=== PATIENT | female | born 1970 | race Caucasian/White ===

== ENCOUNTER 2024-02-18 15:02 | Outpatient (AMB) | payer OTHER, SELFPAY ==
--- NOTE | 2024-02-18 15:19 | MHC.PC.OV ---
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 Last physical ~ one year ago Concerns Menses-She reports that she has gained weight. She is now getting fairly heavy periods and often happening every two weeks. She has not missed any periods. Mom had menopause at 55, sister with hysterectomy Reports colon cancer screening and mammography are up to date. ROS see HPI PHYSICAL EXAM: GENERAL: Alert and oriented x 3. NAD EYES: EOMI. Anicteric. HENT: Moist mucous membranes. No scleral icterus. No cervical lymphadenopathy. LUNGS: Clear to auscultation bilaterally. CARDIOVASCULAR: Regular rate and rhythm. No murmur. No JVD. ABDOMEN: Soft, non-tender +bs EXTREMITIES: No edema. Non-tender. SKIN: No rashes or lesions. Warm. NEUROLOGIC: No focal neurological deficits. CN II-XII grossly intact PSYCHIATRIC: Cooperative. 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 1. Little interest or pleasure in doing things: not at all 2. Feeling down, depressed, or hopeless: not at all 3. Trouble falling or staying asleep, or sleeping too much: not at all 4. Feeling tired or having little energy: not at all 5. Poor appetite or overeating: not at all 6. Feeling bad about yourself - or that you are a failure or have let yourself or your family down: not at all 7. Trouble concentrating on things, such as reading the newspaper or watching television: not at all 8. Moving or speaking so slowly that other people could have noticed. Or the opposite - being so fidgety or restless that you have been moving around a lot more than usual: not at all 9. Thoughts that you would be better off or of hurting yourself in some way: not at all Total score: 0 Depression Screening Interpretation: Negative (neg) Depression Screening Done: Yes 72480 - PHQ-9 Billing: Yes Source: Developed by Drs. Meño Owens, Hien Fitzpatrick, López Ramirez and colleagues, with an educational eugene from [employer]. Thrive Questionnaire Date Thrive assessed: 02/15/24 I am a: Patient What is your living situation today?: I have a steady place to live Within the past 12 months, did the food you bought not last and you didn't have the money to get more?: Never true Within the past 12 months, did you worry whether your food would run out before you got money to buy more?: Never true Do you have trouble paying for medicines?: No Do you have trouble getting transportation to medical appointments?: No Do you have trouble paying your heating and electricity bill?: No Do you have trouble taking care of your child, family member or friend?: No Do you have trouble with day-to-day activities such as bathing, preparing meals, shopping, managing finances, etc.?: No Are you currently unemployed and looking for a job?: No Are you interested in more education?: No Please select the resources that you would like help with: None Currently or been in a relationship where the following occur: No concerns reported THRIVE Score: 0 AUDIT C Alcohol Use Questionnaire (AUDIT-C) 1. How often do you have a drink containing alcohol?: Monthly or less 2. How many drinks containing alcohol do you have on a typical day when you are drinking?: 1 or 2 3. How often do you have six or more drinks on one occasion?: Less than monthly Total Score: 2 SIMONE-7 AMB Questionnaire SIMONE-7 Date SIMONE - 7 assessed: 02/18/24 Feeling nervous, anxious, or on edge: 0 = Not at all Not being able to stop or control worryin = Not at all Worrying too much about different things: 0 = Not at all Trouble relaxin = Not at all Being so restless that it is hard to sit still: 0 = Not at all Becoming easily annoyed or irritable: 0 = Not at all Feeling afraid as if something awful might happen: 0 = Not at all Total SIMONE-7 score (0-4 normal; 5-9 mild; 10-14 moderate; 15-21 severe): 0 Source: Developed by Drs. Meño Owens, Hien Fitzpatrick, López Ramirez and colleagues, with an educational eugene from [employer]. SIMONE-7 Assessment Billing SIMONE-7 Assessment Tool: SIMONE-7 Assessment 81027 Physical exam (Primary Care) Vital Signs: Last Vital Signs Temp 97.7 F 02/18/24 15:23 Pulse 73 02/18/24 15:23 Resp 14 02/18/24 15:23 BP 124/72 02/18/24 15:23 Pulse Ox 98 02/18/24 15:23 Oxygen Delivery Method Room Air 02/18/24 15:23 BMI result Body Mass Index 29.2 Tobacco/Smoking Status: Tobacco use Status Tobacco use date assessed 02/18/24 02/18/24 15:27 Patient Tobacco Use Status Never used Tobacco 02/18/24 15:27 e-Cigarette/Vaping Use Never Used 02/18/24 15:27 PHQ-9: PHQ-9 Score PHQ-9: Total score 0 03/12/24 09:22 Depression Screening Interpretation: Negative (neg) Thrive Assessment: Date of Thrive Assessment Date Thrive assessed 02/15/24 02/18/24 15:21 Currently or been in a relationship where the following occur: No concerns reported Coding Level of Care Code Est Pt Level 4 (86366) Complex EM visit Add On G2211 Diagnoses Encounter to establish care Z76.89 Abnormal menses N92.6 Additional Codes SIMONE-7 Assessment Billing - SIMONE-7 Assessment Tool: SIMONE-7 Assessment 64101 ([id number]) Assessment & Plan Assessment & Plan (1) Encounter to establish care: Code(s): Z76.89 - Persons encountering health services in other specified circumstances Category: Medical Plan: 54 y/o to establish care. Past medical, surgical, social and family history reviewed. Chart updated (2) Abnormal menses: Code(s): N92.6 - Irregular menstruation, unspecified Category: Medical Plan: labs ordered Weight gain-ezray sent Orders: Orders TSH reflex Free T4 02/23/24 N92.6 - Irregular menstruation, unspecified, Z13.0 - Encounter for screening for diseases of the blood and blood-forming organs and certain disorders involving the immune mechanism, Z13.228 - Encounter for screening for other metabolic disorders, Z13.220 - Encounter for screening for lipoid disorders IRON PROFILE 02/23/24 N92.6 - Irregular menstruation, unspecified, Z13.0 - Encounter for screening for diseases of the blood and blood-forming organs and certain disorders involving the immune mechanism, Z13.228 - Encounter for screening for other metabolic disorders, Z13.220 - Encounter for screening for lipoid disorders Lutenizing Hormone 02/23/24 N92.6 - Irregular menstruation, unspecified, Z13.0 - Encounter for screening for diseases of the blood and blood-forming organs and certain disorders involving the immune mechanism, Z13.228 - Encounter for screening for other metabolic disorders, Z13.220 - Encounter for screening for lipoid disorders Comprehensive Met. Panel 02/23/24 N92.6 - Irregular menstruation, unspecified, Z13.0 - Encounter for screening for diseases of the blood and blood-forming organs and certain disorders involving the immune mechanism, Z13.228 - Encounter for screening for other metabolic disorders, Z13.220 - Encounter for screening for lipoid disorders Lipid Panel 02/23/24 N92.6 - Irregular menstruation, unspecified, Z13.0 - Encounter for screening for diseases of the blood and blood-forming organs and certain disorders involving the immune mechanism, Z13.228 - Encounter for screening for other metabolic disorders, Z13.220 - Encounter for screening for lipoid disorders Estradiol Ultra Sensitive 02/23/24 N92.6 - Irregular menstruation, unspecified, Z13.0 - Encounter for screening for diseases of the blood and blood-forming organs and certain disorders involving the immune mechanism, Z13.228 - Encounter for screening for other metabolic disorders, Z13.220 - Encounter for screening for lipoid disorders Complete Blood Count Auto Diff 02/23/24 N92.6 - Irregular menstruation, unspecified, Z13.0 - Encounter for screening for diseases of the blood and blood-forming organs and certain disorders involving the immune mechanism, Z13.228 - Encounter for screening for other metabolic disorders, Z13.220 - Encounter for screening for lipoid disorders Medications: New Wegovy (semaglutide (weight loss)) administer weeks 1 through 4 of therapy 0.25 mg (0.5 mL) subcut QWEEK 2 mL 0RF NS
[2024-02-18 15:23] VITALS: BP 124/72; PULSE 73; RESP 14; TEMP 36.5; O2SAT 98; BMI 29.2
== END 2024-02-18 15:51 | disposition home or self-care (01) ==
PROVIDERS: PCP Internal Medicine; Visit Provider Internal Medicine
DX: Z76.89 Persons encountering health services in other specified circumstances (principal); N92.6 Irregular menstruation, unspecified

== ENCOUNTER → 2024-02-18 15:02 | Outpatient (BNVA) | payer OTHER, SELFPAY | PROVIDERS: PCP Internal Medicine; Visit Provider Internal Medicine | DX: Z76.89 Persons encountering health services in other specified circumstances (principal); N92.6 Irregular menstruation, unspecified | CPT/HCPCS: 96127 ==

== ENCOUNTER 2024-02-23 08:13 | Outpatient (REF) | payer OTHER, SELFPAY ==
[2024-02-23 11:42] LABS: MANUAL DIFF FLAG NO
[2024-02-23 11:57] LABS: Basophils Absolute Auto 0.1 X10*3/uL (0.0-0.2); Eosinophils Absolute Auto 0.3 X10*3/uL (0.0-0.4); Eosinophils Percent Auto 4.6 % (0-4); Hematocrit 32.2 % (37.0-47.0); Hemoglobin 9.4 g/dl (12.0-16.0); Imm Gran Abs Auto 0.02 X10*3/uL (0.00-0.03); Imm Gran Pct Auto 0.3 % (0.0-0.4); Lymphocytes Absolute Auto 1.6 X10*3/uL (1.2-4.9); Lymphocytes Percent Auto 27.1 % (20-40); Mean Corpuscular HGB Conc 29.2 g/dl (31.0-35.0); Mean Corpuscular Hemoglobin 22.3 pg (27.0-33.0); Mean Corpuscular Volume 76.3 fL (80.0-98.0); Mean Platelet Volume 9.6 fL (9.4-12.3); Monocytes Absolute Auto 0.6 X10*3/uL (0.1-1.2); Monocytes Percent Auto 10.1 % (2-11); Neutrophils Absolute Auto 3.3 x10*3/uL (2.0-8.3); Neutrophils Percent Auto 56.9 % (45-73); Platelet Count 383 X10*3/uL (160-400); Red Blood Count 4.22 X10*6/uL (4.20-5.50); White Blood Count 5.9 X10*3/uL (4.8-10.8)
[2024-02-23 12:23] LABS: Alanine Aminotransferase 22 U/L (0-31); Albumin Level 4.2 g/dL (3.5-5.0); Alkaline Phosphatase 77 U/L (39-117); Anion Gap 11 (12-20); Aspartate Amino Transferase 34 U/L (5-31); Bilirubin Total 0.7 mg/dL (0.0-1.0); Blood Urea Nitrogen 11 mg/dL (9-16); Calcium 9.2 mg/dL (8.4-10.2); Carbon Dioxide 20 mmol/L (22-29); Chloride 107 mmol/L (96-108); Cholesterol 152 mg/dL (<200); Estimated Glomerular Filt Rate > 60; Glucose Random 90 mg/dL (60-115); HDL Cholesterol 69 mg/dL (>40); Iron 26 mcg/dL (30-160); LDL Cholesterol Calculated 73 mg/dL (<100); Percent Iron Saturation 6 % (15-50); Sodium 134 mmol/L (135-145); Total Iron Binding Capacity 401 mcg/dL (228-428); Total Protein 7.4 g/dL (6.5-8.0); Triglycerides 51 mg/dL (<150); Unsaturated Iron Binding 375 ug/dL
[2024-02-23 12:44] LABS: TSH reflex Free T4 1.35 uIU/mL (0.32-4.0)
[2024-02-25 05:53] LABS: Lutenizing Hormone 4.6 mIU/mL
[2024-03-01 02:54] LABS: Estradiol Ultra Sensitive 130 pg/mL
== END 2024-02-23 08:14 | disposition home or self-care (01) ==
LOC: HO.WFDLDS 08:13
PROVIDERS: Visit Provider Internal Medicine
DX: N92.6 Irregular menstruation, unspecified (principal); Z13.0 Encounter for screening for diseases of the blood and blood-forming organs and certain disorders involving the immune mechanism; Z13.228 Encounter for screening for other metabolic disorders; Z13.220 Encounter for screening for lipoid disorders
CPT/HCPCS: 36415; 80053; 80061; 82670; 83002; 83540; 84443; 85025

== ENCOUNTER → 2024-05-16 13:35 | Outpatient (BNVA) | payer OTHER, SELFPAY | PROVIDERS: PCP Internal Medicine; Visit Provider Internal Medicine ==

== ENCOUNTER → 2024-05-16 13:35 | Outpatient (AMB) | payer OTHER, SELFPAY ==
--- NOTE | 2024-05-16 13:55 | A.OFFPC_ITS ---
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 She denies redness, warmth. No fevers. On last breast imaging said she had recall. Says fibrocystic or dense breasts. On exam today the left lateral and lower breast are diffusely tender to palpation. There seems to be some left lower lateral fullness without discrete nodularity. There is significant left axillary lymphadenopathy. no recent immunizations Concerns Menses-She reports that she has gained weight. She is now getting fairly heavy periods and often happening every two weeks. She has not missed any periods. Mom had menopause at 55, sister with hysterectomy Reports colon cancer screening and mammography are up to date. ROS see HPI PHYSICAL EXAM: GENERAL: Alert and oriented x 3. NAD EYES: EOMI. Anicteric. HENT: Moist mucous membranes. No scleral icterus. No cervical lymphadenopathy. LUNGS: Clear to auscultation bilaterally. CARDIOVASCULAR: Regular rate and rhythm. No murmur. No JVD. ABDOMEN: Soft, non-tender +bs EXTREMITIES: No edema. Non-tender. BREAST: see hpi SKIN: No rashes or lesions. Warm. NEUROLOGIC: No focal neurological deficits. CN II-XII grossly intact PSYCHIATRIC: Cooperative. 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 Current occupational exposures/hazards: No Cognitive needs: No Hearing needs: No Vision needs: No Questionnaire Thrive Questionnaire Date Thrive assessed: 05/16/24 I am a: Patient What is your living situation today?: I have a steady place to live Within the past 12 months, did the food you bought not last and you didn't have the money to get more?: Never true Within the past 12 months, did you worry whether your food would run out before you got money to buy more?: Never true Do you have trouble paying for medicines?: No Do you have trouble getting transportation to medical appointments?: No Do you have trouble paying your heating and electricity bill?: No Do you have trouble taking care of your child, family member or friend?: No Do you have trouble with day-to-day activities such as bathing, preparing meals, shopping, managing finances, etc.?: No Are you currently unemployed and looking for a job?: No Are you interested in more education?: No Please select the resources that you would like help with: None Currently or been in a relationship where the following occur: No concerns reported THRIVE Score: 0 SIMONE-7 AMB Questionnaire SIMONE-7 Date SIMONE - 7 assessed: 02/18/24 Becoming easily annoyed or irritable: 0 = Not at all Source: Developed by Drs. Meño Owens, Hien Fitzpatrick, López Ramirez and colleagues, with an educational eugene from [employer]. Physical exam (Primary Care) Vital Signs: Last Vital Signs Pulse 77 05/16/24 13:56 BP 124/84 05/16/24 13:56 Pulse Ox 99 05/16/24 13:56 Oxygen Delivery Method Room Air 05/16/24 13:56 BMI result Body Mass Index 28.9 Tobacco/Smoking Status: Tobacco use Status Tobacco use date assessed 05/16/24 05/16/24 13:56 Patient Tobacco Use Status Never used Tobacco 05/16/24 13:59 e-Cigarette/Vaping Use Never Used 05/16/24 13:59 Thrive Assessment: Date of Thrive Assessment Date Thrive assessed 05/16/24 05/16/24 13:59 Currently or been in a relationship where the following occur: No concerns reported Coding Level of Care Code Est Pt Level 4 (94977) Diagnoses Breast pain, left N64.4 Axillary lymphadenopathy R59.0 Assessment & Plan Assessment & Plan (1) Breast pain, left: Code(s): N64.4 - Mastodynia Category: Medical Plan: Left breast pain with axillary lymphadenopathy CT ordered referral to breast specialist Will try a course of antibiotic (2) Axillary lymphadenopathy: Code(s): R59.0 - Localized enlarged lymph nodes Category: Medical Plan: see above Orders: Orders CT chest wo/w IV con 05/16/24 N64.4 - Mastodynia, R59.0 - Localized enlarged lymph nodes US chest 05/16/24 R59.0 - Localized enlarged lymph nodes Referrals Breast Surgery Referral N64.4 - Mastodynia Medications: New amoxicillin-pot clavulanate 875-125 mg 1 tab PO Q12H 20 tabs 0RF
[2024-05-16 13:56] VITALS: BP 124/84; PULSE 77; O2SAT 99; BMI 28.9
== END ==
PROVIDERS: PCP Internal Medicine; Visit Provider Internal Medicine
DX: N64.4 Mastodynia (principal); R59.0 Localized enlarged lymph nodes

== ENCOUNTER 2024-05-25 15:15 | Outpatient (REF) | payer OTHER, SELFPAY ==
--- NOTE | ~2024-05-25 | US_ITS ---
CLINICAL HISTORY: R59.0 - Localized enlarged lymph nodes US left axilla nonvascular Comparison: None Findings: Sonographic evaluation of the soft tissues of the left axilla demonstrated a morphologically benign axillary lymph node with a central fatty hilum no cortical thickening/disruption measuring 1.1 x 0.9 x 0.5 cm. No soft tissue masses, lymphadenopathy or fluid collections demonstrated Impression: A morphologically benign appearing left axillary lymph node. This document has been electronically signed by: Carmelo Leon MD on 05/29/2024 12:41:18
== END 2024-05-25 15:16 | disposition home or self-care (01) ==
LOC: HO.US 15:15
PROVIDERS: PCP Internal Medicine; Visit Provider Internal Medicine
DX: R59.0 Localized enlarged lymph nodes (principal)
CPT/HCPCS: 76882

== ENCOUNTER → 2024-05-25 15:20 | Outpatient (BNV) | payer OTHER, SELFPAY | PROVIDERS: PCP Internal Medicine; Visit Provider Radiology Diagnostic Radiology | DX: R59.0 Localized enlarged lymph nodes (principal) | CPT/HCPCS: 76882 ==

== ENCOUNTER 2024-07-06 11:13 | Outpatient (REF) | payer OTHER, SELFPAY ==
--- NOTE | ~2024-07-06 | CT_ITS ---
CLINICAL HISTORY: R59.0 - Localized enlarged lymph nodes CT chest with contrast Comparison: None Findings: The heart size is normal. The visualized thyroid and mediastinum are unremarkable. No lymphadenopathy as clinically questioned. No infectious airspace consolidation. No pleural effusion or pneumothorax. Some mild pleural-parenchymal scarring at the right middle lobe and lingula likely sequelae of old infection. The visualized upper abdomen is unremarkable. No acute fractures. IMPRESSION: 1. No acute findings on chest CT. Specifically, no lymphadenopathy as clinically questioned. This document has been electronically signed by: Mary De MD on 07/06/2024 13:01:16
[2024-07-06] MEDS: iohexoL 350 MG/ML 100 ML INFUS..BTL 65 ML IV (12:01)
--- OUTSIDE RECORDS SUMMARY | 2024-07-06 12:36 | XMS_ITS | Clinical Summary ---
Author Organization [facility] Address [address] [place] [address] Phone Care Team Providers Care Sole Tacker Name Role Phone Unavailable Primary Care Provider Unavailabl e Social History Tobacco Use Types Packs/Day Years Used Date Smoking Tobacco: Never Assessed Comments Unknown Sex and Gender Information Value Date Recorded Sex Assigned at Not on file Legal Sex Female 6:32 AM EST Gender Identity Not on file Sexual Orientation Not on file Plan of Treatment Upcoming Encounters Date Type Department Care Team (Late st Contact Info) Description 09/01/2024 8:45 AM EDT Appointment [facility] [address] [address] Health Maintenance Due Date Last Done Comments DTaP,Tdap,and Td Vaccines (1 - Tdap) 1989 Hepatitis B Vaccines (1 of 3 - 19+ 3-dose series) 1989 Cervical Cancer Screening: Pap Smear 1991 Pneumococcal Vaccine: 50+ Years (1 of 1 - PCV) 01/28/2020 Zoster Vaccines (1 of 2) 01/28/2020 Colorectal Cancer Screening: Colonoscopy 04/19/2022 Depression Screening 04/19/2022 HIV Screening 04/19/2022 Hepatitis C Screening 04/19/2022 Social Influencers of Health Screening 04/19/2022 COVID-19 Vaccine (1 - 2023- season) 2024 Influenza Vaccine (#1) 2024 Breast Cancer Screening 08/22/2025 08/23/19 24, 08/17/2022, 08/09/2021, Additional history exists HIB Vaccines Aged Out No longer eligi ble based on patient's age to complete this topic HPV Vaccines Aged Out No longer eligi ble based on patient's age to complete this topic Hepatitis A Vaccines Aged Out No long er eligible based on patient's age to complete this topic IPV Vaccines Aged Out No longer eligi ble based on patient's age to complete this topic MMR Vaccines Aged Out No longer eligi ble based on patient's age to complete this topic Meningococcal ACWY Vaccine Aged Out N o longer eligible based on patient's age to complete this topic Meningococcal B Vacine Aged Out No lo nger eligible based on patient's age to complete this topic Pneumococcal Vaccine: Pediatrics (0 to 5 Years) and At-Risk Patients (6 to 64 Years) Aged Out No longer eligible based on patient's age to complete this topic RSV Immunization Patients Under 20 months Aged Out No longer eligible based on patient's age to complete this topic Varicella Vaccines Aged Out No longer eligible based on patient's age to complete this topic Procedures Procedure Name Priority Date/Time Associated Diagnosis Comments [facility] SCREENING DIGITAL Routine 08/23/2023 8:13 AM EDT Encounter for screening mammogram for malignant neoplasm of breast from Last 3 Months or Most Recently Relevant to Health Maintenance Results * [facility] SCREENING DIGITAL (08/23/2023 8:13 AM EDT) Anatomical Region Laterality Modality Mammography 08/19/2023 8:36 AM EDT Narrative 08/23/2023 8:13 AM EDT [facility] Diagnostic Imaging Department [address] [place] [address] [id number] Patient: ??CAROLINE BLOOM ?/Age/Sex: 1970 - 53 - F Unit#: ??[id number] ? Location/Status: ??SPDIMAM/REG CLI ? Mnemonic/Ordering Site: ??DIGSC/SPMAIN Ordering Physician: ??MARISELA HODGE MS, PA-C [facility] Screening Digital - 08/21/23 - 737 Report Status:Signed EXAM: [facility] Screening Digital EXAM DATE AND TIME: 08/21/2023 7:38 AM HISTORY: ??Annual screening COMPARISON: ??Multiple exams dating back to 2008 TECHNIQUE: Bilateral digital breast tomosynthesis was performed in the CC and MLO projections. Computer aided detection with Exalead 3D 3.1 was employed. TISSUE DENSITY: b. There are scattered areas of fibroglandular density. FINDINGS: Possible developing asymmetry in the upper-outer quadrant of the left breast seen on the MLO view. ??No associated calcification or architectural distortion. The right breast is unremarkable. IMPRESSION: Possible developing asymmetry in the upper-outer quadrant of the left breast seen on the MLO view. ??Recommend diagnostic mammogram of the left breast with spot compression MLO tomographic views. BI-RADS: ??Category 0: Incomplete - Need Additional Imaging Evaluation Dictating Physician: ??JULIO CESAR VELEZ MD Electronically Signed by: ??JULIO CESAR VELEZ MD Dic Date/Time: ??08/23/23809 Sign date/Time: ??08/23/23 08 Procedure Note Julio Cesar Velez MD - 01/03/2024 [facility] Diagnostic Imaging Department [address] [place] [id number] Patient: CAROLINE BLOOM/Age/Sex: 1970 - 53 - F Unit#: [id number] Location/Status: SPDIMAM/REG CLI Mnemonic/Ordering Site: [facility] Ordering Physician: MARISELA HODGE MS, PA-C [facility] Screening Digital - 08/21/23 - 38 Report Status:Signed EXAM: [facility] Screening Digital EXAM DATE AND TIME: 08/21/2023 7:38 AM HISTORY: Annual screening COMPARISON: Multiple exams dating back to 2008 TECHNIQUE: Bilateral digital breast tomosynthesis was performed in the CCand MLO projections. Computer aided detection with Exalead 3D 3.1was employed. TISSUE DENSITY: b. There are scattered areas of fibroglandular density. FINDINGS: Possible developing asymmetry in the upper-outer quadrant of the leftbreast seen on the MLO view. No associated calcification or architecturaldistortion. The right breast is unremarkable. IMPRESSION: Possible developing asymmetry in the upper-outer quadrant of the leftbreast seen on the MLO view. Recommend diagnostic mammogram of the left breastwith spot compression MLO tomographic views. BI-RADS: Category 0: Incomplete - Need Additional Imaging Evaluation Dictating Physician: JULIO CESAR VELEZ MD Electronically Signed by: JULIO CESAR VELEZ MD Dic Date/Time: 08/23/23809 Sign date/Time: 08/23/23812 Marisela GRADY IMG BI PROCEDURES Final Result from Last 3 Months or Most Recently Relevant to Health Maintenance Insurance [employer]
[2024-07-06 13:12] LABS: Creatinine POC 0.9 mg/dL (0.5-1.4); GFR POC > 60
== END 2024-07-06 11:14 | disposition home or self-care (01) ==
LOC: HO.CT 11:13
PROVIDERS: PCP Internal Medicine; Visit Provider Internal Medicine
DX: R59.0 Localized enlarged lymph nodes (principal); N64.4 Mastodynia
CPT/HCPCS: 71260; 82565; Q9967

== ENCOUNTER → 2024-07-06 11:15 | Outpatient (BNV) | payer OTHER, SELFPAY | PROVIDERS: PCP Internal Medicine; Visit Provider Radiology Diagnostic Radiology | DX: R59.0 Localized enlarged lymph nodes (principal) | CPT/HCPCS: 71260 ==

== ENCOUNTER 2024-07-18 10:34 | Outpatient (AMB) | payer OTHER, SELFPAY ==
--- NOTE | 2024-07-18 10:35 | A.OFFVIS_ITS ---
Vital Signs 3 07/18/24 10:49 Height 5 ft 5.5 in Weight 175 lb 2 oz BMI 28.7 BP 117/67 Blood Pressure Location Lt brachial Position Sitting Pulse 75 Intake Visit Reasons: mastodynia Intake Note: Patient is seen in office for evaluation and treatment of mastodynia. Pt c/o: had pain from left armpit all the way to the breast, had imaging done and a lump was seen, uncomfortable under the armpit, does not feel a lump, had bx in the past (benign), had breast reduction, yes to breast feeding with no complications, first pregnacy 36 yrs old (twins), mother Dx with breast cancer at age of 82. CT:07/06/24 us:05/29/24 Truckman Required: No Program Director/Morning Show Host: Program Director/Morning Show Host Present Accompanied by: Self / Same As Patient Allergies No Known Allergies Allergy (Verified 07/18/24 10:45) Medication List - Last Reconciled 07/18/24 by Enzo Nuñez MD No Known Home Meds HPI Comments Details: 54-year-old female patient presenting for evaluation of recent complaints of left breast pain and enlarged lymph node in the left axilla. The pain was initially quite severe especially while in bed, but this has subsequently subsided and she currently denies any palpable mass or left breast pain. She reports undergoing mammogram evaluations at [facility], the reports of which are not available to time of this dictation. She does report a previous left breast needle biopsy which was benign. She underwent bilateral reduction mammoplasties (Dr. Platt) and was found to have LCIS. Family history is significant for her mother having breast cancer at the age of 82. She underwent lumpectomy and is doing well 1 year later. Her menarche was the age of 14. She is 1 para 2 with a set of twins. She was 36 years old when she had her children. Her last menstrual period was less than 1 month ago. 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 Current occupational exposures/hazards: No Cognitive needs: No Hearing needs: No Vision needs: No Female Reproductive History Menstrual Age of Menarche: 14 Date of last menstrual period: 06/23/24 Total pregnancies: 1 Number of Living Children: 2 Review of Systems Const All systems reviewed & are unremarkable except as noted in HPI and below Physical Exam Vital Signs: Last Vital Signs Pulse 75 07/18/24 10:49 BP 117/67 07/18/24 10:49 BMI result Body Mass Index 28.7 Const General: cooperative and no acute distress Nutritional Appearance: well nourished Orientation/consciousness: patient oriented x3 Limitations: no limitations HEENT Head: Yes normocephalic and Yes atraumatic Ears: hearing grossly normal bilaterally Chest Other: Left breast: No skin change, no nipple retraction, no nipple discharge, no palpable mass, a palpable enlarged lymph node is noted in the mid axilla approximately 1.5 cm diameter. Right breast: No skin change, no nipple retraction, no nipple discharge, no palpable mass, no enlarged lymph nodes Chest/axillae images: 2 1. Site of enlarged lymph node left axilla Resp Effort & Inspection: normal respiratory effort, no audible wheezes, no cough and no respiratory distress Cardio Jugular venous distension: no JVD GI Inspection: Yes normal to inspection Skin Other: Warm, dry, no rash Neuro General: patient oriented x3 Extrem General: Yes no clubbing, cyanosis or edema Assessment & Plan Assessment & Plan (1) Axillary lymphadenopathy: Code(s): R59.0 - Localized enlarged lymph nodes Category: Medical (2) Breast pain, left: Code(s): N64.4 - Mastodynia Category: Medical (3) At high risk for breast cancer: Code(s): Z91.89 - Other specified personal risk factors, not elsewhere classified Category: Medical Plan 54-year-old female patient with a family history of breast cancer in her mother presenting with a recent history of left breast pain found to have an enlarged lymph node in the left axilla. She previously underwent bilateral reduction mammoplasties and was told that she had LCIS in the portion removed. She previously underwent a left needle biopsy which was benign. On examination she has no current tenderness but does have an enlarged lymph node in the left axilla. I recommended an ultrasound-guided core biopsy of this enlarged lymph node and will make arrangements for this at the [facility]. I calculated her Rosalieer-Cuzick remaining lifetime risk of breast cancer at 56.5% which would place her at high risk for breast cancer, due to her prior history of LCIS. She would qualify for a hand screening for breast cancer including twice yearly clinical breast examination, yearly breast MRI alternating every 6 months with her yearly mammograms. This will be discussed with her further when she returns after the ultrasound-guided core biopsy. Orders: Orders 2 US biopsy lymph node Today N64.4 - Mastodynia, R59.0 - Localized enlarged lymph nodes Coding Level of Care Code New Pt Level 4 (88625) Diagnoses Axillary lymphadenopathy R59.0 Breast pain, left N64.4 At high risk for breast cancer Z91.89
[2024-07-18 10:49] VITALS: BP 117/67; PULSE 75; BMI 28.7
--- OUTSIDE RECORDS SUMMARY | 2024-07-18 12:52 | XMS_ITS | Clinical Summary ---
Author Organization [facility] Address [address] [place] [address] Phone Care Team Providers Care Aviation Electrical Technician Name Role Phone Unavailable Primary Care Provider [...] AM EDT [facility]ment [facility] [address] [id number] Health Maintenance Due Date Last [...] Procedure Name Priority Date/Time Associated Diagnosis Comments [facility] SCREENING DIGITAL Routine 08/23/2023 8:13 AM EDT Encounter for screening mammogram for malignant neoplasm of breast from Last 3 Months or Most Recently Relevant to Health Maintenance Results * [facility] SCREENING DIGITAL (08/23/2023 8:13 AM EDT) Anatomical Region Laterality Modality Mammography 08/19/2023 8:36 AM EDT Narrative 08/23/2023 8:[address] [facility] Diagnostic Imaging Department [address] [place] [address] [id number] Patient: ??CAROLINE BLOOM ?/Age/Sex: 1970 - 53 - F Unit#: ??[id number] ? Location/Status: ??SPDIMAM/REG CLI ? Mnemonic/Ordering Site: ??DIGSC/SPMAIN Ordering Physician: ??MARISELA HODGE MS, PA-C [facility] Screening Digital - 08/21/23 - 737 Report Status:Signed EXAM: [facility] Screening Digital EXAM DATE AND TIME: 08/21/2023 7:38 AM HISTORY: ??Annual screening COMPARISON: ??Multiple exams dating back to 2008 TECHNIQUE: Bilateral digital breast tomosynthesis was performed in the CC and MLO projections. Computer aided detection with [employer] 3D 3.1 was employed. TISSUE DENSITY: b. [...] Note Julio Cesar Velez MD - 01/03/2024 [facility] Diagnostic Imaging Department [address] [place] [id number] Patient: CAROLINE BLOOM/Age/Sex: 1970 - 53 - F Unit#: [id number] Location/Status: SPDIMAM/REG CLI Mnemonic/Ordering Site: [facility] Ordering Physician: MARISELA HODGE MS, PA-C [facility] Screening Digital - 08/21/23 - 38 Report Status:Signed EXAM: [facility] Screening Digital EXAM DATE AND TIME: 08/21/2023 7:38 AM HISTORY: Annual screening COMPARISON: Multiple exams dating back to 2008 TECHNIQUE: Bilateral digital breast tomosynthesis was performed in the CCand MLO projections. Computer aided detection with MedCenterDisplay 3D 3.1was employed. TISSUE DENSITY: b. There [...]
== END 2024-07-18 10:59 | disposition home or self-care (01) ==
PROVIDERS: PCP Internal Medicine; Visit Provider Surgery
DX: R59.0 Localized enlarged lymph nodes (principal); N64.4 Mastodynia; Z91.89 Other specified personal risk factors, not elsewhere classified
CPT/HCPCS: 99204

== ENCOUNTER → 2024-07-18 10:34 | Outpatient (BNVA) | payer OTHER, SELFPAY | PROVIDERS: PCP Internal Medicine; Visit Provider Surgery ==

== ENCOUNTER 2024-08-08 13:39 | Outpatient (REF) | payer OTHER, SELFPAY ==
--- NOTE | ~2024-08-08 | US_ITS ---
PROCEDURE: US GUIDED LEFT AXILLA LYMPH NODE BIOPSY CLINICAL INFORMATION: Palpable lymph node left axilla, high risk for breast cancer. COMPARISON: CT chest 07/06/2024. PROCEDURAL DETAILS: The details of the procedure, as well as the risks, benefits, and alternatives to the procedure were explained to the patient in detail and all of her questions were answered, after which written informed consent was obtained. Site and side were confirmed. Prior to the procedure, sonography revealed a 1.2 x 1.7 cm low left axillary lymph node, correlating with the palpable finding. A time-out was performed, the lesion intended for biopsy was targeted, and the skin of the overlying left axilla was then marked, prepped and draped in the usual sterile fashion. Using sonographic guidance, sterile technique, and 1% lidocaine without epinephrine for local anesthesia, multiple core biopsies were obtained through the lymph node with a 14G spring loaded [employer] core biopsy device. There was real-time confirmation of appropriate needle passage. Sampling was documented. At the completion of tissue sampling, a single butterfly shaped metallic clip was deposited at the biopsy site. There was no evidence of immediate complication. SPECIMEN: 5 well formed core samples were obtained DIGITAL POST-PROCEDURE MAMMOGRAPHY: Not performed. The patient tolerated the procedure well and, after assuring adequate hemostasis, was discharged in good condition after reviewing postbiopsy breast care instructions. Final pathology results are pending. US/US biopsy lymph node IMPRESSION: 1. No immediate complication from ultrasound-guided percutaneous biopsy left low axillary lymph node. 2. Ultrasound was used to localize and guide marker clip placement. 3. Final pathology results are pending. A separate report with final recommendations will be issued once these results are made available. Electronically signed by: George Andrew MD 08/08/2024 03:08 PM EDT
--- NOTE | ~2024-08-08 | US_ITS ---
EXAMINATION: US DIAGNOSTIC ULTRASOUND LEFT AXILLA CLINICAL INFORMATION: Palpable abnormality of the left axilla. Patient is high risk for breast CA. Biopsy requested by Dr. Nuñez. COMPARISON: 07/06/[address] Mammography, [facility], 02/29/2024 TECHNIQUE: Ultrasound of the left axilla performed with real-time dolan scale imaging and color Doppler. Attention given to the region of palpable concern. FINDINGS: There is no focal suspicious finding. There is no solid mass, architectural abnormality, duct ectasia, or edema in the soft tissue planes. There are 3 normal-appearing lymph nodes with normal normal morphology, normal thickness cortex, and prominent fatty riuz. The most inferior measures approximately 1.8 x 1.2 cm, and correlates with the area of palpable concern. US/US breast LT limited mamm only IMPRESSION: Left axillary normal-appearing lymph nodes. Biopsy requested by ordering provider due to patient high-risk status. Findings and recommendations were discussed with the patient in detail. ASSESSMENT: BI-RADS 4: Suspicious (subcategory 4A: Low suspicion for malignancy) RECOMMENDATION: Ultrasound-guided core biopsy. Electronically signed by: George Andrew MD 08/08/2024 03:13 PM EDT
[2024-08-08] MEDS: Sodium Bicarbonate 8.4% 50 MEQ/50 ML VIAL SUBCUT (14:44)
[2024-08-08] MEDS: Lidocaine HCl 1 % 20 ML VIAL 4 ML SUBCUT (14:45)
== END 2024-08-08 13:40 | disposition home or self-care (01) ==
LOC: HO.MAMMO 13:39
PROVIDERS: Radiology Diagnostic Radiology; PCP Internal Medicine; Visit Provider Surgery
DX: N64.4 Mastodynia (principal); R59.0 Localized enlarged lymph nodes
CPT/HCPCS: 38505; 76642; 76942; 88184; 88185; 88300; 88305; A4648; C1894; J2003

== ENCOUNTER → 2024-08-08 14:00 | Outpatient (BNV) | payer OTHER, SELFPAY | PROVIDERS: PCP Internal Medicine; Visit Provider Radiology Diagnostic Radiology | DX: R59.0 Localized enlarged lymph nodes (principal) | CPT/HCPCS: 38505; 76882; 76942 ==

== ENCOUNTER 2024-08-29 09:20 | Outpatient (AMB) | payer OTHER, SELFPAY ==
--- NOTE | 2024-08-29 09:20 | A.OFFVIS_ITS ---
Vital Signs 08/29/24 09:23 Height 5 ft 5 in Weight 175 lb BMI 29.1 BP 117/65 Blood Pressure Location Lt brachial Position Sitting Pulse 80 Intake Visit Reasons: breast bx results Intake Note: Patient is seen in office for ultrasound biopsy RESULTS left axilla lymph nodes. Pt c/o:no changes here for results us b:08/08/24 * Order MRI * Pharmacy Technician Required: No Accompanied by: Self / Same As Patient Allergies No Known Allergies Allergy (Verified 08/29/24 09:24) Medication List - Last Reconciled 08/29/24 by Enzo Nuñez MD No Known Home Meds HPI Comments Details: 54-year-old female patient presenting for evaluation of recent complaints of left breast pain and enlarged lymph node in the left axilla. The pain was initially quite severe especially while in bed, but this has subsequently subsided and she currently denies any palpable mass or left breast pain. She reports undergoing mammogram evaluations at [facility], the reports of which are not available to time of this dictation. She does report a previous left breast needle biopsy which was benign. She underwent bilateral reduction mammoplasties (Dr. Platt) and was found to have LCIS. Family history is significant for her mother having breast cancer at the age of 82. She underwent lumpectomy and is doing well 1 year later. Her menarche was the age of 14. She is 1 para 2 with a set of twins. She was 36 years old when she had her children. Her last menstrual period was less than 1 month ago. She returns today following a left axillary lymph node needle biopsy with ultrasound guidance. Pathology revealed scant benign lymphoid tissue with nonspecific T- cell dominant profile with increased CD4 positive events, nondiagnostic for B- cell lymphoproliferative disorder by flow cytometry. A copy of the report was provided to the patient. Patient was determined to have a Tyrer-Cuzick remaining lifetime risk of breast cancer at 56% placing her at high risk for breast cancer both from family history and personal history. 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 Current occupational exposures/hazards: No Cognitive needs: No Hearing needs: No Vision needs: No Female Reproductive History Menstrual Age of Menarche: 14 Review of Systems Const All systems reviewed & are unremarkable except as noted in HPI and below Physical Exam Vital Signs: Last Vital Signs Pulse 80 08/29/24 09:23 BP 117/65 08/29/24 09:23 BMI result Body Mass Index 29.1 Const General: cooperative and no acute distress Nutritional Appearance: well nourished Orientation/consciousness: patient oriented x3 Limitations: no limitations HEENT Head: Yes normocephalic and Yes atraumatic Ears: hearing grossly normal bilaterally Chest Other: Exam deferred Resp Effort & Inspection: normal respiratory effort, no audible wheezes, no cough and no respiratory distress Cardio Jugular venous distension: no JVD GI Inspection: Yes normal to inspection Skin Other: Warm, dry, no rash Neuro General: patient oriented x3 Extrem General: Yes no clubbing, cyanosis or edema Assessment & Plan Assessment & Plan (1) At high risk for breast cancer: Code(s): Z91.89 - Other specified personal risk factors, not elsewhere classified Category: Medical (2) Breast neoplasm, Tis (LCIS): Code(s): D05.00 - Lobular carcinoma in situ of unspecified breast Category: Medical Qualifiers: Laterality: unspecified laterality Qualified Code(s): D05.00 - Lobular carcinoma in situ of unspecified breast Plan 54-year-old female patient returning following a left axillary needle biopsy of an enlarged lymph node. Pathology revealed benign lymphoid tissue with no evidence of malignancy. We discussed her high-risk status given the prior history of LCIS and family history of breast cancer. Her Tyrer-zick remaining lifetime risk of breast cancer is 56%, well above the 20% threshold placing her at high risk for breast cancer. I recommended increased screening with yearly breast MRI alternating with mammogram every 6 months as well as q.6 month clinical breast examinations. She expressed understanding and agrees with the plan. She will return in approximately 6 months for breast examination. She reports being very anxious about MRIs therefore I will prescribe Ativan to be taken prior to the study. Orders: Orders MR breast BI wo/w con Today D05.00 - Lobular carcinoma in situ of unspecified breast, Z91.89 - Other specified personal risk factors, not elsewhere classified Coding Level of Care Code Est Pt Level 3 (33776) Diagnoses At high risk for breast cancer Z91.89 Neoplasm of breast, primary tumor staging category Tis: lobular carcinoma in situ (LCIS), unspecified laterality D05.00 Laterality: unspecified laterality
[2024-08-29 09:23] VITALS: BP 117/65; PULSE 80; BMI 29.1
--- OUTSIDE RECORDS SUMMARY | 2024-08-29 10:16 | XMS_ITS | Clinical Summary ---
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 Name Role Phone Unavailable Primary Care Provider [...] AM EDT [facility]ointment [facility] at [address] [phone] Health Maintenance Due Date Last [...] Influencers of Health Screening 04/19/2022 COVID-19 Vaccine ( - 2023- season) 2024 Influenza Vaccine (Season Ended) 2025 Breast Cancer Screening 08/22/2025 08/23/19 24, 08/17/2022, [...] age to complete this topic Meningococcal B Vaccine Aged Out No l onger eligible based on patient's age to complete [...] Procedure Name Priority Date/Time Associated Diagnosis Comments [facility] SCREENING DIGITAL Routine 08/23/2023 8:13 AM EDT Encounter for screening mammogram for malignant neoplasm of breast from Last 3 Months or Most Recently Relevant to Health Maintenance Results * [facility] SCREENING DIGITAL (08/23/2023 8:13 AM EDT) Anatomical Region Laterality Modality Mammography 08/19/2023 8:36 AM EDT Narrative 08/23/2023 8:13 AM EDT [facility] Diagnostic Imaging Department [address] [place] [id number] Patient: ??CAROLINE BLOOM ?/Age/Sex: 1970 - 53 - F Unit#: ??[id number] ? Location/Status: ??SPDIMAM/REG CLI ? Mnemonic/Ordering Site: ??DIGSC/SPMAIN Ordering Physician: ??MARISELA HODGE MS, PA-C [facility] Screening Digital - [id number] Report Status:Signed EXAM: [facility] Screening Digital EXAM DATE AND TIME: 08/21/2023 7:38 AM HISTORY: ??Annual screening COMPARISON: ??Multiple exams dating back to 2008 TECHNIQUE: Bilateral digital breast tomosynthesis was performed in the CC and MLO projections. Computer aided detection with [employer] 3D 3.1 was employed. TISSUE DENSITY: b. [...] Note Julio Cesar Velez MD - 01/03/2024 [facility] Diagnostic Imaging Department [address] [place] [id number] Patient: CAROLINE BLOOM/Age/Sex: 1970 - 53 - F Unit#: [id number] Location/Status: SPDIMAM/REG CLI Mnemonic/Ordering Site: [facility] Ordering Physician: MARISELA HODGE MS, PA-C [facility] Screening Digital - 08/21/23 - [id number] Report Status:Signed EXAM: [facility] Screening Digital EXAM DATE AND TIME: 08/21/2023 7:38 AM HISTORY: Annual screening COMPARISON: Multiple exams dating back to 2008 TECHNIQUE: Bilateral digital breast tomosynthesis was performed in the CCand MLO projections. Computer aided detection with [employer] 3D 3.1was employed. TISSUE DENSITY: b. There [...]
== END 2024-08-29 09:37 | disposition home or self-care (01) ==
LOC: HO.HGS 09:20
PROVIDERS: PCP Internal Medicine; Visit Provider Surgery
DX: Z91.89 Other specified personal risk factors, not elsewhere classified (principal); D05.00 Lobular carcinoma in situ of unspecified breast
CPT/HCPCS: 99213

== ENCOUNTER → 2024-10-11 13:33 | Outpatient (BNV) | payer OTHER, SELFPAY | PROVIDERS: PCP Internal Medicine; Visit Provider Internal Medicine | DX: R92.8 Other abnormal and inconclusive findings on diagnostic imaging of breast (principal) | CPT/HCPCS: 77049 ==

== ENCOUNTER 2024-10-11 13:34 | Outpatient (REF) | payer OTHER, SELFPAY ==
--- OUTSIDE RECORDS SUMMARY | 2024-10-11 14:30 | XMS_ITS | Clinical Summary ---
Author Organization [facility] Address [address] [place] [phone] Phone Care Team Providers Care Operations And Maintenance Technician Name Role Phone Jessica Garcia MD Primary Care Provider [phone] Encounters Date Type Department Care Team Description 09/01/2024 8:32 AM EDT - 09/01/2024 11:59 PM EDT Hospital [facility] at [address] [address] Abnormal mammogram of both breasts Discharge Disposition: Home or Self Care from Last 3 Months Surgical History Surgery Date Site/Laterality Comments MS BREAST REDUCTION STEREOTACTIC CORE BIOPSY 06/12/2009 Left FIBROADENOMA Medical History Medical History Date Comments 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 BRCA1 gene mutation negative Family History Medical History Relation Name Comments Breast cancer Mother Relation Name Status Comments Mother Social History Tobacco Use Types Packs/Day Years Used Date Smoking Tobacco: Never Assessed Comments No Sex and Gender Information Value Date Recorded Sex Assigned at Not on file Legal Sex Female 6:32 AM EST Gender Identity Not on file Sexual Orientation Not on file Obstetrics History Para Term AB IAB SAB Ectopic Multiple Livin g Live Births 1 Last Filed Vital Signs Vital Sign Reading Time Taken Comments Blood Pressure - - Pulse - - Temperature - - Respiratory Rate - - Oxygen Saturation - - Inhaled Oxygen Concentration - - Weight 77.1 kg (170 lb) 09/01/2024 8:47 AM EDT Height 165.1 cm (5' 5 ) 09/01/2024 8:47 AM EDT Body Mass Index 28.29 09/01/2024 8:47 AM EDT Plan of Treatment Health Maintenance Due Date Last Done Comments [...] of Health Screening 04/19/2022 COVID-19 Vaccine ( season) 2024 04/09/2021, 09/05/2020, 08/14/2020 Influenza Vaccine (Season Ended) 2025 Breast Cancer Screening 09/01/2026 09/02/19 25, 08/23/2023, 08/17/2022, Additional history exists Cholesterol Screening (Lipid Panel) 05/29/2027 05/29/2022 HIB Vaccines Aged Out No longer eligi [...] Procedure Name Priority Date/Time Associated Diagnosis Comments MG MAMMO DIGITAL DIAGNOSTIC W BALA BILAT Routine 09/01/2024 9:15 AM EDT Abnormal mammogram of both breasts from Last 3 Months Results * MG Mammo Digital Diagnostic w Bala bilat (09/01/2024 9:15 AM EDT) Anatomical Region Laterality Modality Breast Bilateral Mammography 09/01/2024 9:35 AM EDT Impressions 09/01/2024 9:37 AM EDT No mammographic evidence of malignancy. ?? No suspicious interval change. A negative mammogram in the presence of a clinically suspicious palpable abnormality does not preclude the possibility of malignancy or alter the indications for biopsy. ASSESSMENT: ?? BI-RADS 2: BENIGN RECOMMENDATION(S): 1: Routine screening mammogram BILATERAL in 1 year. [facility] location[facility] at [address], [address] -------- FINAL REPORT -------- Dictated By: Luis Alfredo Martins Dictated Date: 09/01/2024 09:35 ET Assigned Physician: Luis Alfredo Martins Reviewed and Electronically Signed By: Luis Alfredo Martins Signed Date: 09/01/2024 09:37 ET Workstation ID: [id number] Transcribed By: Self Edit Transcribed Date: 09/01/2024 09:35 ET Narrative 09/01/2024 9:37 AM EDT EXAM: ??DIAGNOSTIC MAMMOGRAPHY, BILATERAL HISTORY: ??Short interval follow-up. ??Probably benign asymmetry superior left breast. History of bilateral breast reduction surgery COMPARISON: ??02/29/24, 08/27/23, 08/21/23, 08/15/22, 08/09/21, 07/20/20 TECHNIQUE: Synthesized CC and MLO projections of each breast. ??Tomosynthesis of each breast in the CC and MLO projections. ADDITIONAL IMAGING: None Computer-aided detection was employed with the iCAD ??[employer]Found AI 3-D. TISSUE DENSITY: The breasts are heterogeneously dense, which may obscure small masses. (BI-RADS category C) FINDINGS: RIGHT BREAST: The architecture is consistent with previous reduction surgery. ??There are diffuse round and amorphous calcifications. No new suspicious right breast mass LEFT BREAST: There is no suspicious asymmetry in the superior left breast. The architecture is unchanged and consistent with previous reduction surgery. There are diffuse round and amorphous calcifications. ??There is no suspicious change in the region of the biopsy site marker. ??No additional suspicious left breast findings Procedure Note Luis Alfredo Martins MD - 09/01/2024 EXAM: DIAGNOSTIC MAMMOGRAPHY, BILATERAL HISTORY: Short interval follow-up. Probably benign asymmetry superiorleft breast. History of bilateral breast reduction surgery COMPARISON: 02/29/24, 08/27/23, 08/21/23, 08/15/22, 08/09/21, 07/20/20 TECHNIQUE: Synthesized CC and MLO projections of each breast.Tomosynthesis of each breast in the CC and MLO projections. ADDITIONAL IMAGING: None Computer-aided detection was employed with the [employer] 3-D. TISSUE DENSITY: The breasts are heterogeneously dense, which may obscuresmall masses. (BI-RADS category C) FINDINGS: RIGHT BREAST: The architecture is consistent with previous reduction surgery. There arediffuse round and amorphous calcifications. No new suspicious right breast mass LEFT BREAST: There is no suspicious asymmetry in the superior left breast. The architecture is unchanged and consistent with previous reductionsurgery. There are diffuse round and amorphous calcifications. There is nosuspicious change in the region of the biopsy site marker. No additionalsuspicious left breast findings IMPRESSION: No mammographic evidence of malignancy. No suspicious interval change. A negative mammogram in the presence of a clinically suspicious palpableabnormality does not preclude the possibility of malignancy or alter theindications for biopsy. ASSESSMENT: BI-RADS 2: BENIGN RECOMMENDATION(S): 1: Routine screening mammogram BILATERAL in 1 year. [facility] location[facility] at [address], [address] -------- FINAL REPORT -------- Dictated By: Luis Alfredo Martins Dictated Date: 09/01/2024 09:35 ET Assigned Physician: Luis Alfredo Martins Reviewed and Electronically Signed By: Luis Alfredo Martins Signed Date: 09/01/2024 09:37 ET Workstation ID: [id number] Transcribed By: Self Edit Transcribed Date: 09/01/2024 09:35 ET us Marisela GRADY IMG BI PROCEDURES Final Result from Last 3 Months Insurance [employer] Care Teams Operations And Maintenance Technician Relationship Specialty Start Date End Date Jessica Garcia MD [address] [place] [address] PCP - General Internal Medicine 09/01/24
[2024-10-11] MEDS: gadobutroL 7.5 ML VIAL IVPUSH (14:43)
== END 2024-10-11 13:35 | disposition home or self-care (01) ==
LOC: HO.MRI 13:34
PROVIDERS: PCP Internal Medicine; Visit Provider Surgery
DX: D05.00 Lobular carcinoma in situ of unspecified breast (principal); Z91.89 Other specified personal risk factors, not elsewhere classified
CPT/HCPCS: 77049; A9585

== ENCOUNTER 2025-03-13 09:20 | Outpatient (AMB) | payer OTHER, SELFPAY ==
--- NOTE | 2025-03-13 09:25 | A.OFFVIS_ITS ---
Vital Signs 03/13/25 09:33 Height 5 ft 5 in Weight 157 lb BMI 26.1 BP 111/61 Blood Pressure Location Lt brachial Position Sitting Pulse 77 Intake Visit Reasons: 6 month breast Intake Note: Patient is seen in office for 6 month follow up visit, breast examination. Patient c/o: no changes since last visit MRI:10/11/24 Belt Cutter Required: No Financial Reporting Director: Financial Reporting Director Present Accompanied by: Self / Same As Patient Allergies No Known Allergies Allergy (Verified 03/13/25 09:26) HPI Comments Details: 55-year-old female patient returning for a high risk breast examination. She does report a previous left breast needle biopsy which was benign. She also underwent biopsy of a axillary lymph node which was benign. She underwent bilateral reduction mammoplasties (Dr. Platt) and was found to have LCIS. Family history is significant for her mother having breast cancer at the age of 82. She underwent lumpectomy and is doing well 1 year later. Her menarche was the age of 14. She is 1 para 2 with a set of twins. She was 36 years old when she had her children. Patient was determined to have a Tyrer-Cuzick remaining lifetime risk of breast cancer at 56% placing her at high risk for breast cancer both from family history and personal history. Mammogram performed on 09/01/2024 revealed no mammographic evidence of malignancy in either breast (BI-RADS 2). Breast MRI performed on 10/11/2024 revealed bilateral enhancing findings which may or may not be background enhancement. As this is her 1st MRI a repeat MRI in 6 months was recommended (BI-RADS 3 bilateral). 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 Current occupational exposures/hazards: No Cognitive needs: No Hearing needs: No Vision needs: No Female Reproductive History Menstrual Age of Menarche: 14 Review of Systems Const All systems reviewed & are unremarkable except as noted in HPI and below Physical Exam Const General: cooperative and no acute distress Nutritional Appearance: well nourished Orientation/consciousness: patient oriented x3 Limitations: no limitations HEENT Head: Yes normocephalic and Yes atraumatic Ears: hearing grossly normal bilaterally Chest Other: Bilateral breast reduction incisions identified Left breast: No skin change, no nipple retraction, no nipple discharge, no palpable mass, no enlarged lymph nodes. Right breast: No skin change, no nipple retraction, no nipple discharge, no palpable mass, no enlarged lymph nodes Resp Effort & Inspection: normal respiratory effort, no audible wheezes, no cough and no respiratory distress Cardio Jugular venous distension: no JVD GI Inspection: Yes normal to inspection Skin Other: Warm, dry, no rash Neuro Other: Mobility Assessment: 1. 3 meter assessment time (seconds) 4 2. Gait observations: Normal balance and gait General: patient oriented x3 Extrem General: Yes no clubbing, cyanosis or edema Assessment & Plan Assessment & Plan (1) At high risk for breast cancer: Code(s): Z91.89 - Other specified personal risk factors, not elsewhere classified Category: Medical (2) Breast neoplasm, Tis (LCIS): Code(s): D05.00 - Lobular carcinoma in situ of unspecified breast Category: Medical Qualifiers: Laterality: unspecified laterality Qualified Code(s): D05.00 - Lobular carcinoma in situ of unspecified breast Plan 55-year-old female patient returning for high-risk breast cancer screening with the [facility] remaining lifetime risk of breast cancer 56%. Her mammogram performed on 09/01/2024 revealed no mammographic evidence of malignancy (BI-RADS 2). MRI performed on 10/11/2024 revealed possibly related to background enhancement. This was felt to be low suspicion for malignancy and short-term follow-up recommended in 6 months (BI-RADS 3 bilateral). Examination today revealed no suspicious findings in either breast. I recommended a follow-up examination in 6 months and continued annual screening with mammogram and breast MRI. She expressed understanding and agrees with the plan. Medications: New lorazepam (Ativan) 0.5 mg orally Prior to MRI PRN anxiety PRN; 2 tabs 0RF anxiety Coding Level of Care Code Est Pt Level 3 (85795) Complex EM visit Add On G2211 Diagnoses At high risk for breast cancer Z91.89 Neoplasm of breast, primary tumor staging category Tis: lobular carcinoma in situ (LCIS), unspecified laterality D05.00 Laterality: unspecified laterality
[2025-03-13 09:33] VITALS: BP 111/61; PULSE 77; BMI 26.1
--- OUTSIDE RECORDS SUMMARY | 2025-03-13 10:32 | XMS_ITS | Clinical Summary ---
Author Organization [facility] Address [address] [place] [phone] Phone Care Team Providers Care Awning Installer Name Role Phone Jessica Garcia MD Primary Care Provider Surgical History Surgery Date Site/Laterality Comments [place] BREAST REDUCTION STEREOTACTIC CORE BIOPSY 06/12/2009 Left [...] Health Maintenance Due Date Last Done Comments Colorectal Cancer Screening: Colonoscopy 1970 DTaP,Tdap,and Td Vaccines (1 - Tdap) 1989 Hepatitis B Vaccines (1 of 3 - 19+ 3-dose series) 1989 Cervical Cancer Screening: Pap Smear 1991 Pneumococcal Vaccine: 50+ Years (1 of 1 - PCV) 01/28/2020 Zoster Vaccines (1 of 2) 01/28/2020 HIV Screening 04/19/2022 Hepatitis C Screening 04/19/2022 Social Influencers of Health Screening 04/19/2022 Depression Screening 05/17/2024 COVID-19 Vaccine (4 - season) 2025 04/09/2021, 09/05/2020, 08/14/2020 Influenza Vaccine (#1) 2025 Breast Cancer Screening 09/01/2026 09/02/19 25, 08/23/2023, 08/17/2022, Additional history exists Cholesterol Screening (Lipid Panel) 05/29/2027 05/29/2022 RSV Immunization Adult Patients (1 - 1-dose 75+ series) 2045 HIB Vaccines Aged Out No longer eligi [...] of both breasts from Last 3 Months or Most Recently Relevant to Health Maintenance Results * MG Mammo Digital Diagnostic w Bala bilat (09/01/2024 9:15 AM EDT) Anatomical Region Laterality Modality Breast Bilateral Mammography 09/01/2024 9:35 AM EDT Impressions 09/01/2024 9:37 AM EDT No mammographic evidence of malignancy. No suspicious interval change. A negative mammogram in the presence of a clinically suspicious palpable abnormality does not preclude the possibility of malignancy or alter the indications for biopsy. ASSESSMENT: BI-RADS 2: BENIGN RECOMMENDATION(S): 1: Routine screening mammogram BILATERAL in 1 year. [facility] location[facility] at [address], [address] -------- FINAL REPORT -------- Dictated By: Luis Alfredo Martins Dictated Date: 09/01/2024 09:35 ET Assigned Physician: Luis Alfredo Martins Reviewed and Electronically Signed By: Luis Alfreod Martins Signed Date: 09/01/2024 09:37 ET Workstation ID: [id number] Transcribed By: Self Edit Transcribed Date: 09/01/2024 09:35 ET Narrative 09/01/2024 9:37 AM EDT EXAM: DIAGNOSTIC MAMMOGRAPHY, BILATERAL HISTORY: Short interval follow-up. Probably benign asymmetry superior left breast. History of bilateral breast reduction surgery COMPARISON: 02/29/24, 08/27/23, 08/21/23, 08/15/22, 08/09/21, 07/20/20 TECHNIQUE: Synthesized CC and MLO projections of each breast. Tomosynthesis of each breast in the CC and MLO projections. ADDITIONAL IMAGING: None Computer-aided detection was employed with the iCAD [employer] AI 3-D. TISSUE DENSITY: The breasts are heterogeneously dense, which may obscure small masses. (BI-RADS category C) FINDINGS: RIGHT BREAST: The architecture is consistent with previous reduction surgery. There are diffuse round and amorphous calcifications. No new suspicious right breast mass LEFT BREAST: There is no suspicious asymmetry in the superior left breast. The architecture is unchanged and consistent with previous reduction surgery. There are diffuse round and amorphous calcifications. There is no suspicious change in the region of the biopsy site marker. No additional suspicious left breast findings Procedure Note [...] Computer-aided detection was employed with the iCAD ProFound AI 3-D. TISSUE DENSITY: The breasts are [...] year. [facility]amm[facility] at [address], [address] -------- FINAL REPORT -------- Dictated By: Luis Alfredo Martins Dictated Date: 09/01/2024 09:35 ET Assigned Physician: Luis Alfredo Martins Reviewed and Electronically Signed By: Luis Alfredo Martins Signed Date: 09/01/2024 09:37 ET Workstation ID: [id number] Transcribed By: Self Edit Transcribed Date: 09/01/2024 09:35 ET Marisela GRADY IMG BI PROCEDURES Final Result from Last 3 Months or Most Recently Relevant to Health Maintenance Insurance [employer] Care Teams Awning Installer Relationship Specialty Start Date End Date Jessica Garcia MD [address] [place] [address] PCP - General Internal Medicine 09/01/24
--- OUTSIDE RECORDS SUMMARY | 2025-03-13 10:32 | XMS_ITS | Encounter Summary ---
Author Organization [facility] Address [address] [facility] [address] [place] [phone] Phone Care Team Providers Care Shaft Headman Name Role Phone Marisela Connors Primary Care Provider [phone] Marisela Connors Primary Care Provider [phone] Encounter Details Date Type Department Care Team (Latest Contact Info) Description 05/23/2021 Transcribe Orders [facility] [address] [place] [address] Marisela Connors PA [address] [place], [place] [id number] [email or web address] Anemia, unspecified type (Primary Dx); Elevated LFTs Social History Tobacco Use Types Packs/Day Years Used Date Smoking Tobacco: Never Assessed Comments Unknown Sex and Gender Information Value Date Recorded Sex Assigned at Not on file Legal Sex Female 9:35 PM EDT Gender Identity Not on file Sexual Orientation Not on file documented as of this encounter Plan of Treatment Not on file documented as of this encounter Results * (ABNORMAL) CBC and differential (05/23/2021 4:03 PM EST) WBC 6.77 4.00 - 11.00 K/uL [facility] RBC 3.88 3.72 - 5.30 M/uL [facility] HGB 11.7 10.6 - 15.5 g/dL [facility] HCT 36.1 32.0 - 45.0 % [facility] PLT 309 140 - 430 K/uL [facility] MCV 93.0 78.0 - 97.0 fL [facility] MCH 30.2 25.0 - 33.0 pg [facility] MCHC 32.4 32.0 - 36.0 g/dL [facility] RDW 13.2 11.0 - 16.0 % [facility] MPV 9.8 8.4 - 12.8 fl [facility] NRBC 0.00 0 /100 WBCs [facility] ABSOLUTE NRBC 0.00 0 K/uL [facility] DIFF METHOD Auto [facility] NEUTS 48.1 43.0 - 75.0 % [facility] LYMPHS 31.8 18.2 - 47.4 % [facility] MONOS 12.3(H) 4.00 - 11.00 % [facility] EOS 6.8 0.0 - 8.0 % [facility] BASOS 0.7 0.0 - 2.0 % [facility] Granulocytes, immature (%) 0.3 0.0 - 0.9 % [facility] ABSOLUTE NEUTS 3.26 1.80 - 7.70 K/uL [facility] ABSOLUTE LYMPHS 2.15 1.00 - 3.10 K/uL [facility] ABSOLUTE MONOS 0.83(H) 0.20 - 0.80 K/uL [facility] ABSOLUTE EOS 0.46 0.00 - 0.80 K/uL [facility] ABSOLUTE BASOS 0.05 0.00 - 0.09 K/uL [facility] Granulocytes, immature 0.02 0.00 - 0.05 K/uL [facility] Blood 05/23/2021 4:03 PM EST 05/23/2021 4:07 PM EST us Marisela GRADY LAB BLOOD ORDERABLES Final Resu lt [facility] [address] [place] [address] * LFTs (hepatic panel) (05/23/2021 4:03 PM EST) ALKALINE PHOSPHATASE 56 39 - 117 U/L [facility] TOTAL BILIRUBIN 0.3 0.0 - 1.2 mg/dL [facility] DIRECT BILIRUBIN <0.2 0 - 0.3 mg/dL [facility] Bilirubin (Indirect) NOT CALCULATED 0 - 1.5 mg/dL [facility] AST 26 0 - 37 U/L [facility] ALT 15 0 - 40 U/L [facility] TOTAL PROTEIN 6.7 6.5 - 8.0 g/dL [facility] ALBUMIN 4.4 3.9 - 4.8 g/dL [facility] GLOBULIN 2.3 1 - 4.8 g/dL [facility] A/G Ratio 1.91 1.00 - 4.80 RATIO [facility] Blood 05/23/2021 4:03 PM EST 05/23/2021 4:07 PM EST us Marisela GRADY LAB BLOOD ORDERABLES Final Resu lt Performing Organization Address City/State/[facility] Co de Phone Number [address] [address] documented in this encounter Visit Diagnoses Diagnosis Anemia, unspecified type- Primary Elevated LFTs Other abnormal blood chemistry documented in this encounter Additional Health Concerns Infection Onset Date Last Indicated Resolved Time CoV-Risk 05/28/2021 05/28/2021 06/07/2021 1:23 AM EST documented as of this encounter Care Teams Shaft Headman Relationship Specialty Start Date End Date Marisela Connors PA [address] [place] [address] [email or web address] [email or web address] - General 05/20/17 12/28/21 Marisela Connors PA [address] [place] [address] [email or web address] PCP - General Unknown Provider Specialty 12/29/21 documented as of this encounter Additional Source Comments The information contained in this document represents components of the legal health record. It is not the complete legal health record.[facility]
--- OUTSIDE RECORDS SUMMARY | 2025-03-13 10:32 | XMS_ITS | Clinical Summary ---
Author Organization [facility] Address [address] [place] [address] Phone Care Team Providers Care Financial Compliance Manager Name Role Phone Marisela Connors Primary Care Provider [phone] Allergies No known active allergies Medications albuterol 90 mcg/actuation inhaler INHALE 2 PUFFS BY MOUTH EVERY 4 TO 6 HOURS NEEDED FOR COUGH 10/08/2021 Active loratadine (CLARITIN) 10 mg tablet Take 10 mg by mouth daily. Active Social History Tobacco Use Types Packs/Day Years Used Date Smoking Tobacco: Never Smokeless Tobacco: Never Alcohol Use Standard Drinks/Week Comments Yes 2 (1 standard drink = 0.6 oz pur e alcohol) Education Answer Date Recorded Are you interested in more education? Not on lynette e 09/11/2022 Are you concerned about learning? Not on file 09/11/2022 No 09/11/2022 No 09/11/2022 Digital Access Answer Date Recorded No 10/12/2022 No 10/12/2022 Reliable internet access at home? Not on file 10/12/2022 Device with a working camera? Not on file Comments No Sex and Gender Information Value Date Recorded Sex Assigned at Not on file Legal Sex Female 9:35 PM EDT Gender Identity Not on file Sexual Orientation Not on file Last Filed Vital Signs Vital Sign Reading Time Taken Comments Blood Pressure 111/74 01/09/2022 11:04 AM EDT Pulse 83 01/09/2022 11:04 AM EDT Temperature 36.5 C (97.7 F) 01/09/2022 10:48 AM EDT Respiratory Rate 16 01/09/2022 11:04 AM EDT Oxygen Saturation 98% 01/09/2022 11:04 AM EDT Inhaled Oxygen Concentration - - Weight 70.3 kg (155 lb) 01/07/2022 1:16 PM EDT Height 165.1 cm (5' 5 ) 01/07/2022 1:16 PM EDT Body Mass Index 25.79 01/07/2022 1:16 PM EDT Plan of Treatment Health Maintenance Due Date Last Done Comments Adult Td,Tdap Booster 1970 DEPRESSION SCREENING 1982 HEPATITIS C SCREENING 01/28/1988 HIV ONE-TIME SCREENING (18-6 5 YEARS) 01/28/1988 PAP SMEAR 1991 MAMMOGRAM 2010 COLOGUARD 2015 FIT TEST 2015 FOBT 2015 SIGMOIDOSCOPY 2015 VIRTUAL COLONOSCOPY 2015 PNEUMOCOCCAL VACCINES (50+ years) (1 of 1 - PCV) 01/28/2020 ZOSTER VACCINES (1 of 2) 01/28/2020 INFLUENZA VACCINE (#1) 2024 COVID-19 VACCINE (3 - 2024-2 6 season) 2025 09/05/2020, 08/14/2020 LIPID PANEL 05/29/2027 05/29/2022 COLONOSCOPY 01/10/2032 01/09/2022 COLORECTAL CANCER SCREENING 01/10/2032 RSV VACCINE (1 - 1-dose 75+ series) 2045 SMOKING STATUS SCREENING (On ce After 26 Yrs) Completed 01/09/2022 HEPATITIS A VACCINES Aged Out No long er eligible based on patient's age to complete this topic HIB VACCINES Aged Out No longer eligi ble based on patient's age to complete this topic MENINGOCOCCAL VACCINES (ACWY) Aged Out No longer eligible based on patient's age to complete this topic MENINGOCOCCAL VACCINES (B) Aged Out N o longer eligible based on patient's age to complete this topic Medical Devices Not on file Procedures Procedure Name Priority Date/Time Associated Diagnosis Comments LIPID PANEL Routine 05/29/2022 9:07 AM EST Routine general medical examination at a health care facility Weight gain ENDOSCOPY, COLON 01/09/2022 10:2 2 AM EDT from Last 3 Months or Most Recently Relevant to Health Maintenance Results * (ABNORMAL) Lipid panel (05/29/2022 9:07 AM EST) HDL 66 mg/dL [facility] Comment: Interpretation <40 mg/dL: Low HDL cholesterol (major risk factor for CHD) Greater than or equal to 60 mg/dL: High HDL cholesterol ( negative risk factor for CHD) HDL - cholesterol is affected by a number of factors, e.g. smoking, excerise, hormones, sex and age. CHOLESTEROL 146 0 - 240 mg/dL [facility] TRIGLYCERIDES 62 30 - 160 mg/dL [facility] LDL 68 50 - 129 mg/dL [facility] Comment: LDL levels in terms of risk for coronary heart disease: <100 mg/dL: Optimal 100-129 mg/dL: Near or above optimal 130-159 mg/dL: Borderline high 160-189 mg/dL: High >190 mg/dL: Very High CARDIAC RISK RATIO 2.2(L) 3.3 - 4.4 C [facility] Blood 05/29/2022 9:07 AM EST 05/29/2022 9:09 AM EST us Marisela GRADY LAB BLOOD ORDERABLES Final Resu lt [address] [address] * ENDOSCOPY, COLON (01/09/2022 10:22 AM EDT) Narrative Transcriptions Carlos Springer MD - 01/09/2022 10:22 AM EDT Patient Name: Caroline Bloom Attending MD:: CARLOS SPRINGER MD, Procedure Date: 01/09/2022 10:22 AM Date of : 1970 Age: 51 Admit Type: Outpatient Gender: Female Room: [place] [address] Referring MD: Marisela Connors MD Exam Type: Colonoscopy Indications: Screening for colorectal malignant neoplasm Medications: Monitored Anesthesia Care Procedure: Informed consent was obtained from the patientafter discussion of the indications, limitations, alternatives, benefits, and risks of the procedure. Risks specifically discussed include but are not limited to medication reactions, missed lesions, bleeding, perforation, or the need for emergent surgery. Throughout the procedure, the patient's blood pressure, pulse, end-tidal CO2, and oxygensaturations were monitored continuously. The Olympus pediatric variable colonoscopePCF-[id number] #3 was introduced through the anus and advanced tothe cecum, identified by appendiceal orifice andileocecal valve. The colonoscopy was performed without difficulty. The patient tolerated the procedurewell. The quality of the bowel preparation was excellent. The quality of the bowel preparation was evaluated using the BBPS (Pickerel Bowel Preparation Scale)with scores of: Right Colon = 3, Transverse Colon = 3and Left Colon = 3 (entire mucosa seen well with no residual staining, small fragments of stool oropaque liquid). The total BBPS score equals 9. Anatomical landmarks were photographed. Complications: No immediate complications. Estimated blood loss: Minimal. Findings: The perianal and digital rectal examinations were normal. A 5 mm polyp was found in the sigmoid colon. Thepolyp was sessile. The polyp was removed with a coldsnare. Resection and retrieval were complete. Internal hemorrhoids were found duringretroflexion. The hemorrhoids were mild. The exam was otherwise normal throughout theexamined colon. Impression: - One 5 mm polyp in the sigmoid colon, removed witha cold snare. Resected and retrieved. - Internal hemorrhoids. Recommendation: - Discharge patient to home. - Await pathology results. CARLOS SPRINGER MD, 01/09/2022 10:49:17 AM This report has been signed electronically. Number of Addenda: 0 Note Initiated On: 01/09/2022 10:22 AM Procedure Code(s): --- Professional --- 14689, Colonoscopy, flexible; with removal of tumor(s), polyp(s), or other lesion(s) by snare technique --- Technical --- 21633, Colonoscopy, flexible; with removal of tumor(s), polyp(s), or other lesion(s) by snare technique Diagnosis Code(s): --- Professional --- Z12.11, Encounter for screening for malignantneoplasm of colon K63.5, Polyp of colon K64.8, Other hemorrhoids --- Technical --- Z12.11, Encounter for screening for malignantneoplasm of colon K63.5, Polyp of colon K64.8, Other hemorrhoids CPT copyright 2020 [employer]. All rights reserved. The codes documented in this report are preliminary and upon composition molder reviewmay be revised to meet current compliance requirements. Procedure Date: 01/09/2022 10:22:[address] [place] [address] Marisela GRADY GI PROCEDURE ORDERABLES Final R esult from Last 3 Months or Most Recently Relevant to Health Maintenance Insurance [employer] HMO POS EPO [facility] EPO [facility] E[facility] EPO [facility] POS EPO [employer] Care Teams Financial Compliance Manager Relationship Specialty Start Date End Date [place] [address] [email or web address] PCP - General Unknown Provider Specialty 12/29/21 Additional Source Comments The information contained in this document represents components of the legal health record. It is not the complete legal health record.[facility]
--- OUTSIDE RECORDS SUMMARY | 2025-03-13 10:32 | XMS_ITS | Encounter Summary ---
Author Organization [facility] Address [address] [place] [address] Phone Care Team Providers Care Property Specialist Name Role Phone Marisela Connors Primary Care Provider [phone] Encounter Details Date Type Department Care Team ([facility] st Contact Info) Description 01/09/2022 Procedure Pass [facility] Endoscopy Admitting Dept Virtual Department [address] [place] [address] Social History Tobacco Use Types Packs/Day Years Used Date Smoking Tobacco: Never Smokeless Tobacco: Never Alcohol Use Standard Drinks/Week Comments Yes 2 (1 standard drink = 0.6 oz pur e alcohol) Comments No Sex and Gender Information Value Date Recorded Sex Assigned at Not on file Legal Sex Female 9:35 PM EDT Gender Identity Not on file Sexual Orientation Not on file documented as of this encounter Plan of Treatment Not on file documented as of this encounter Visit Diagnoses Not on filedocumented in this encounter Care Teams Property Specialist Relationship Specialty Start Date End Date Marisela Connors PA [address] [place] [address] [email or web address] PCP - General Unknown Provider Specialty 12/29/21 documented as of this encounter Additional Source Comments The information contained in this document represents components of the legal health record. It is not the complete legal health record.[facility]
--- OUTSIDE RECORDS SUMMARY | 2025-03-13 10:32 | XMS_ITS | Encounter Summary ---
Author Organization [facility] Address [address] [facility] [address] [place] [address] Phone Care Team Providers Care Stamping Machine Operator Name Role Phone Marisela Connors Primary Care Provider Encounter Details Date Type Department Care Team (Late st Contact Info) Description 09/14/2022 Procedure Pass [facility], Ct Scan - [facility] [address] [place] [address] Social History Tobacco Use Types Packs/Day Years Used Date Smoking Tobacco: Never Smokeless Tobacco: Never Alcohol Use Standard Drinks/Week Comments Yes 2 (1 standard drink = 0.6 oz pur e alcohol) Education Answer Date Recorded Are you interested in more education? Not on lynette e 09/11/2022 Are you concerned about learning? Not on file 09/11/2022 No 09/11/2022 No 09/11/2022 Comments No Sex and Gender Information Value Date Recorded Sex Assigned at Not on file Legal Sex Female 9:35 PM EDT Gender Identity Not on file Sexual Orientation Not on file documented as of this encounter Plan of Treatment Not on file documented as of this encounter Visit Diagnoses Not on filedocumented in this encounter Care Teams Stamping Machine Operator Relationship Specialty Start Date End Date Marisela Connors PA [address] [place] [address] [email or web address] PCP - General Unknown Provider Specialty 12/29/21 documented as of this encounter Additional Source Comments The information contained in this document represents components of the legal health record. It is not the complete legal health record.[facility]
--- OUTSIDE RECORDS SUMMARY | 2025-03-13 10:32 | XMS_ITS | Encounter Summary ---
Author Organization [facility] Address [address] [facility] [address] [place] [address] Phone Care Team Providers Care Sports Clerk Name Role Phone Marisela Connors Primary Care Provider [phone] Marisela Connors Primary Care Provider [phone] Encounter Details Date Type Department Care Team (Latest Contact Info) Description 05/06/2021 Transcribe Orders Virtual Department [address] [place] [address] Marisela Connors PA [address] [place] [address] [email or web address] Runny nose (Primary Dx) Social History Tobacco Use Types Packs/Day Years Used Date Smoking Tobacco: Never Assessed Comments Unknown Sex and Gender Information Value Date Recorded Sex Assigned at Not on file Legal Sex Female 9:35 PM EDT Gender Identity Not on file Sexual Orientation Not on file documented as of this encounter Plan of Treatment Not on file documented as of this encounter Results * COVID-19 PCR Order (05/28/2021 10:41 AM EST) COVID Testing Status Specimen received in analyzing lab. Results should be available within 24 to 48 hrs. [facility] Symptomatic? YES [facility] Other 05/28/2021 10:4 1 AM EST 05/28/2021 2:05 PM EST us Marisela GRADY BODY FLUIDS AND STOOLS ORDERABL ES Final Result [facility] [address] [place] [address] [facility] [address] [place] [address] documented in this encounter Visit Diagnoses Diagnosis Runny nose- Primary Other diseases of nasal cavity and sinuses documented in this encounter Additional Health Concerns Infection Onset Date Last Indicated Resolved Time CoV-Risk 05/06/2021 05/28/2021 05/16/2021 1:23 AM EST CoV-Risk 05/28/2021 05/28/2021 06/07/2021 1:23 AM EST documented as of this encounter Care Teams Sports Clerk Relationship Specialty Start Date End Date Marisela Connors PA [address] [place] [address] [email or web address] PCP - General 05/20/17 12/28/21 Marisela Connors PA [address] [place] [address] [email or web address] PCP - General Unknown Provider Specialty 12/29/21 documented as of this encounter Additional Source Comments The information contained in this document represents components of the legal health record. It is not the complete legal health record.[facility]
--- OUTSIDE RECORDS SUMMARY | 2025-03-13 10:32 | XMS_ITS | Encounter Summary ---
Author Organization [facility] Address [address] [facility] [address] [place] [address] Phone Care Team Providers Care Hoop Flaring Machine Operator Helper Name Role Phone Marisela Connors Primary Care Provider [phone] Encounter Details Date Type Department Care Team ([facility] st Contact Info) Description 09/04/2022 Transcribe Orders Virtual Department [address] [place] [address] Marisela Connors PA [address] [place] [address] [email or web address] Social History Tobacco Use Types Packs/Day Years [...] on filedocumented in this encounter Care Teams Hoop Flaring Machine Operator Helper Relationship Specialty Start Date End Date Marisela Connors PA [address] [place] [address] [email or web address] PCP - General Unknown Provider Specialty 12/29/21 documented as of this encounter Additional Source Comments The information contained in this document represents components of the legal health record. It is not the complete legal health record.[facility]
== END 2025-03-13 09:42 | disposition home or self-care (01) ==
LOC: HO.HGS 09:21
PROVIDERS: PCP Internal Medicine; Visit Provider Surgery
DX: Z91.89 Other specified personal risk factors, not elsewhere classified (principal); D05.00 Lobular carcinoma in situ of unspecified breast
CPT/HCPCS: 99213; G2211

== ENCOUNTER → 2025-04-24 10:28 | Outpatient (BNV) | payer OTHER, SELFPAY | PROVIDERS: PCP Internal Medicine; Visit Provider Radiology Body Imaging | DX: N63.25 Unspecified lump in the left breast, overlapping quadrants (principal) | CPT/HCPCS: 77049 ==

== ENCOUNTER 2025-04-24 10:29 | Outpatient (REF) | payer OTHER, SELFPAY ==
--- NOTE | ~2025-04-24 | MR_ITS ---
EXAMINATION: MR BREAST WITHOUT AND WITH CONTRAST, BILATERAL CLINICAL INFORMATION: - Z91.89 - Other specified personal risk factors, not elsewhere classified -Previous breast MRI on October 05, 2024 recommended a 6-month follow-up MRI for further evaluated stability of bilateral breasts findings as follows: Right: Enhancing foci in the upper inner breast far posterior depth which could represent background marked enhancement. Left: 5 to 6 mm oval enhancing mass and 4 mm enhancing foci in the central/lower breast this could represent background enhancement. -Bilateral reduction mammoplasty in 2008. According to the previous MR report, LCIS was found, however, unspecified side. -Ultrasound-guided needle core biopsy of the left axillary lymph node on August 08, 2024 with butterfly shaped metallic clip placement. Pathology results showed scant benign lymphoid tissue. COMPARISON: -Breast MRI on October 05, 2024 (note that these images could not be reviewed in [employer] due to technical issues) -Most recent bilateral diagnostic mammography at [facility] dated September 01, 2024 (BI-RADS 2; describes no suspicious asymmetry in the superior left breast). TECHNIQUE: Siemens Magnetom Altea 1.5 T utilized. MR imaging of the breast was performed using T1, T2 and fat saturated techniques. Dynamic multiphase imaging was performed with 4 sequences after the administration of 6.5 cc of intravenous gadolinium contrast agent Gadavist 3D image processing was performed using the diagnostic workstation ([employer] software) with real-time multiplanar image reformation and maximum intensity projection ray tracing. Kinetic curves were obtained. FINDINGS: Breast composition: Heterogeneous fibroglandular tissue. Mild background parenchymal enhancement. RIGHT BREAST: Prior reduction mammoplasty. Nonenhancing T2 hyperintense cysts. Susceptibility artifact in the lower outer quadrant at the level of the skin (7:99/126). Previously seen enhancing focus in the upper breast at approximately 12 o'clock position has decreased is size now measuring about 0.3 cm (1041:57/126), is not associated with suspicious kinetics, and on today's exam, favors being part of the background enhancement. No suspicious masses or areas of non mass enhancement. No axillary or internal mammary adenopathy. LEFT BREAST: Prior reduction mammoplasty. Nonenhancing T2 hyperintense cysts. Susceptibility artifact in the lower breast at approximately 6 o'clock position at about 3.6 cm from the nipple most likely correlates with the tissue marker from previous needle core biopsy (7:80/126). Previously seen oval enhancing mass in the central lower breast approximately 6 o'clock position at 4.3 cm from the nipple measures 0.7 x 0.4 cm, associated with central portion of persistent enhancement (1041:80/126, 19:151/206) is unchanged in size from previous MR from September 2024. Previously described additional enhancing focus is not seen on the current examination, which most likely represented part of the background enhancement. No suspicious masses or areas of non mass enhancement. No architectural distortion. No axillary or internal mammary adenopathy. Limited views of the chest and abdomen are unremarkable. MR/MR breast BI wo/w con IMPRESSION: RIGHT BREAST: Previously seen enhancing focus has decreased in size, which favors part of the background enhancement. No MR specific evidence of malignancy. LEFT BREAST: Unchanged size of the enhancing mass in the central lower breast at about 6 o'clock position at 4.3 cm from the nipple measuring 0.7 x 0.4 cm, with a central persistent enhancement. Additional enhancing focus seen on the previous examination is no longer seen, therefore, most likely represented part of the background enhancement. Probably benign. A 6-month follow-up MRI is recommended for further evaluation of the stability. ASSESSMENT: BIRADS 3: Probably benign RECOMMENDATIONS: Patient will be due for bilateral screening mammogram in August 2025 (in accordance with the previous mammogram report from August 2024). Six month follow-up breast MRI. Electronically signed by: Kris Avalos MD 04/25/2025 08:51 AM [facility] [place]
== END 2025-04-24 10:30 | disposition home or self-care (01) ==
LOC: HO.MRI 10:29
PROVIDERS: PCP Internal Medicine; Visit Provider Surgery
DX: R92.8 Other abnormal and inconclusive findings on diagnostic imaging of breast (principal); Z91.89 Other specified personal risk factors, not elsewhere classified
CPT/HCPCS: 77049; A9585